=== PATIENT | male | born 1985 | race Caucasian/White ===

== ENCOUNTER 2019-08-13 02:47 | Emergency (ER) | payer MEDICAID, OTHER ==
[~2019-08-13] VITALS: Ht 167.6 cm; Wt 70.3 kg
[2019-08-13 04:47] VITALS: BP 122/76
== END 2019-08-13 04:50 ==
LOC: ER 02:47
DX: R07.81 Pleurodynia (principal); F10.129 Alcohol abuse with intoxication, unspecified; S09.8XXA Other specified injuries of head, initial encounter; Y90.9 Presence of alcohol in blood, level not specified; V43.52XA Car driver injured in collision with other type car in traffic accident, initial encounter; Y93.89 Activity, other specified; Y92.89 Other specified places as the place of occurrence of the external cause; Y99.8 Other external cause status
CPT/HCPCS: 70450; 71045; 72125